=== PATIENT | female | born 1935 | race Two or more races ===

== ENCOUNTER 2018-07-19 09:21 | Emergency (ER) | payer SELFPAY ==
[2018-07-19] MEDS ORDERED: Sodium Bicarbonate 8.4%* 50 ML SYRINGE ONE (09:22)
[2018-07-19] MEDS ORDERED: Calcium CHLORIDE 10% SYRINGE* 1 GM/10 ML ONE (09:22)
[2018-07-19] MEDS ORDERED: Dextrose 50% Syringe 50 ML* 25 GM/50 ML SYRINGE ONE (09:22)
[2018-07-19] MEDS ORDERED: EPINEPHrine SYR 0.1MG/ML* SYRINGE ONE (09:22)
[2018-07-19 09:37] VITALS: BP 0/0
--- NOTE | 2018-07-19 09:43 | ED ---
Cardiac Resuscitation - HPI Summary HPI Summary: Pt is an 82 year old F brought in by EMS for cardiac arrest onset 30 minutes CLAM SHUCKER. LEVEL 5 CAVEAT: Pt's full hx and physical is unobtainable d/t current status of cardiac arrest. Per EMS patient was unresponsive for 13-15 minutes prior to the start of CPR. The family brought the pt to a fire department where CPR was started and the pt was transferred to [facility] by EMS. The patient was given one dose of epinephrine and was intubated en route to the ED. - History of Current Complaint Stated Complaint: ABC PER EMS Hx Obtained From: EMS Hx From Patient Unobtainable Due To: Extremis Onset/Duration: Minutes/Hours: - 30 minutes CLAM SHUCKER Arrest Witnessed: Yes Down-time Before Advanced Life Support Initiated: Down-time before ALS initiated : - 13-15 minutes per EMS Was AED Placed on Patient: Yes AED Placed on Patient By: EMS - Prehospital Findings Disability/Neurologic: Unresponsive - Prehospital Intervention Breathing: Intubation:, Oral Endotracheal Circulation/Rhythm: Chest Compressions, Epinephrine: - 1 dose CLAM SHUCKER - Past Medical History Past Medical History: Unobtainable Due to Extremis - Family History Family History: Unobtainable Due to Extremis - Social History Social History: Unobtainable Due to Extremis - Review of Systems Review of Systems: Unobtainable Due to Extremis Physical Examination - Summary Physical Exam Summary: Appearance: pt in extremis Skin: cool, pale Head/face: normal Eyes: mildly dialated ENT: mucous membranes moist Neck: supple, non-tender Respiratory: intubated, assisted Cardiovascular: No spontaneous cardiac activity, No LE edema Abdomen: non-tender, soft Bowel Sounds: not observed Musculoskeletal: no spont movement Neuro: no spontaneous movement - Physical Examination Triage Information Reviewed: Yes Completion Of Physical Exam Limited Due To: Extremis Resuscitation: Unsuccessful Procedures - Procedure Summary Procedure Summary: CPR: The patient arrived to the ED at 0920 with CPR assumed by ER staff at 921. The first dose of Epinephrine was administered at 921. At 922 there was an airway check and 1 gram of Calcium was administered. Bicarbonate was administered at 923. At 925 the 2nd dose of Epinephrine was administered and at 927 a 2nd dose of bicarbonate was also administered. A dose of dextrose was administered at 929. Multiple bedside echos failed to show any spontaneous cardiac activity. The patient at 930. Cardiac Resus. Course/Dx - Course Course Of Treatment: Patient presents with downtime approximately 30 minutes. No CPR for at least 15 minutes prior to EMS. CPR as indicated above. Family available after patient for history --Family is from [place] and indicates that she began having chest pain, shortness of breath after getting off the plane about 4 days ago. She's had chest pain and shortness of breath with exertion this morning prior to collapse. Discussed with the dragline operator helper who has taken the case as a biomedical service engineer's case. - Cardiac Resuscitation Differential Dx/HPI/PQRI: Asystole, Cardiac Rhythm Disturbance, Pulmonary Edema , Pulseless Electrical Activity, Respiratory Failure, Sudden , Other: - PE - Diagnoses Provider Diagnoses: Cardiopulmonary arrest During the Visit The Following Alert/Code Occurred: ABC Alert Discharge - Sign-Out/Discharge Documenting (check all that apply): Patient Departure - 930 - Discharge Plan Condition: Disposition: Referrals: No Primary Care Phys,NOPCP [Primary Care Provider] - - Billing Disposition and Condition Condition: Disposition: - Attestation Statements Document Initiated by Scribe: Yes Documenting Scribe: Ramy Grey Provider For Whom Scribe is Documenting (Include Credential): Twin Moore MD Scribe Attestation: Ramy Person, scribed for Twin Moore MD on 07/19/18 at 1346. Scribe Documentation Reviewed: Yes Provider Attestation: The documentation as recorded by the Ramy oleary accurately reflects the service I personally performed and the decisions made by nv, Twin Moore MD Status of Scribe Document: Viewed
== END 2018-07-19 09:31 | disposition expired ==
LOC: ED 09:21
DX: I46.8 Cardiac arrest due to other underlying condition (principal)
CPT/HCPCS: 92960; 99285; J0171